=== PATIENT | female | born 1955 | race Two or more races ===

== ENCOUNTER 2019-01-16 06:19 | Outpatient (CLI) | payer OTHER | END 2019-01-16 06:25 | disposition home or self-care (01) | LOC: LAB 06:19 | DX: R80.8 Other proteinuria (principal); E03.8 Other specified hypothyroidism; E78.49 Other hyperlipidemia; Z11.4 Encounter for screening for human immunodeficiency virus [HIV]; M60.88 Other myositis, other site ==

== ENCOUNTER → 2019-01-17 | Outpatient (CLI) | payer OTHER | END | disposition home or self-care (01) | LOC: MRI 09:01 | DX: M50.90 Cervical disc disorder, unspecified, unspecified cervical region (principal) | CPT/HCPCS: 72141 ==

== ENCOUNTER 2019-01-18 08:01 | Outpatient (CLI) | payer OTHER | END 2019-01-18 15:00 | disposition home or self-care (01) | LOC: LAB 08:01 | DX: E03.8 Other specified hypothyroidism (principal); M60.88 Other myositis, other site; Z12.11 Encounter for screening for malignant neoplasm of colon; Z20.2 Contact with and (suspected) exposure to infections with a predominantly sexual mode of transmission; E55.9 Vitamin D deficiency, unspecified ==

== ENCOUNTER → 2019-07-01 | Emergency (ER) | payer OTHER ==
[~2019-07-01] VITALS: Ht 165.1 cm; Wt 74.8 kg
[~2019-07-01] MED LIST: ATIVAN0.5 M1 PO; ATIVAN1 M1; CHILDREN'S ASPI81 MG; COZAAR25 MG; HORIZANT300 MG; LEXAPRO20 MG; LEXAPRO20 MG PO; LIPITOR20 MG; NABUMETONE500 MG; OMEGA 3-6-9 CO400 MG; PENTOXIFYLLINE400 MG; WOMEN'S 50 PLU1 EACH
== END | disposition home or self-care (01) ==
LOC: ER 09:53
DX: R00.2 Palpitations (principal); F06.4 Anxiety disorder due to known physiological condition

== ENCOUNTER 2020-08-15 11:34 | Outpatient (CLI) | payer OTHER | END 2020-08-15 11:49 | disposition home or self-care (01) | LOC: NUCLEAR 11:34 | DX: M81.0 Age-related osteoporosis without current pathological fracture (principal); Z13.820 Encounter for screening for osteoporosis ==

== ENCOUNTER 2020-08-15 12:27 | Outpatient (CLI) | payer OTHER | END 2020-08-15 12:37 | disposition HB | LOC: MAMO-SONO 12:27 | DX: Z12.31 Encounter for screening mammogram for malignant neoplasm of breast (principal); Z87.898 Personal history of other specified conditions; N64.59 Other signs and symptoms in breast ==

== ENCOUNTER 2020-10-28 08:25 | Outpatient (CLI) | payer OTHER | END 2020-10-28 08:36 | disposition home or self-care (01) | LOC: RAD 08:25 | PROVIDERS: ATTEND Physical Medicine & Rehabilitation | DX: M54.5 Low back pain (principal) ==

== ENCOUNTER 2020-11-04 08:53 | Outpatient (CLI) | payer OTHER | END 2020-11-04 09:01 | disposition home or self-care (01) | LOC: MRI 08:53 | PROVIDERS: ATTEND Physical Medicine & Rehabilitation | DX: M54.2 Cervicalgia (principal); M48.02 Spinal stenosis, cervical region | CPT/HCPCS: 72141 ==

== ENCOUNTER 2021-02-02 13:43 | Outpatient (CLI) | payer OTHER | END 2021-02-02 13:53 | disposition home or self-care (01) | LOC: RAD 13:43 | PROVIDERS: ATTEND Physical Medicine & Rehabilitation | DX: M85.88 Other specified disorders of bone density and structure, other site (principal); M43.24 Fusion of spine, thoracic region; M54.5 Low back pain; M54.6 Pain in thoracic spine ==

== ENCOUNTER → 2021-04-29 | Emergency (ER) | payer OTHER ==
[~2021-04-29] VITALS: Ht 162.6 cm; Wt 63.5 kg
[~2021-04-29] MED LIST changes: +MUPIROCIN1 G1 TOP; +OSTERA TABLET1 EACH PO
== END | disposition home or self-care (01) ==
LOC: ER 09:46
DX: B34.9 Viral infection, unspecified (principal)

== ENCOUNTER 2021-11-16 09:09 | Emergency (ER) | payer OTHER ==
[~2021-11-16] VITALS: Ht 157.5 cm; Wt 59.0 kg
[2021-11-16] MEDS ORDERED: NAPROXEN500 MG (09:31)
== END 2021-11-16 13:57 | disposition home or self-care (01) ==
LOC: ER 09:09
DX: R51.9 Headache, unspecified (principal); R20.2 Paresthesia of skin; I10 Essential (primary) hypertension

== ENCOUNTER 2022-03-17 08:15 | Emergency (ER) | payer OTHER ==
[~2022-03-17] VITALS: Ht 162.6 cm; Wt 59.0 kg
[~2022-03-17 08:15] MED LIST changes: +NAPROXEN500 MG
[2022-03-17] MEDS ORDERED: CRESTOR10 MG PO (08:39)
[2022-03-17] MEDS ORDERED: LEXAPRO5 MG PO (08:39)
[2022-03-17] MEDS ORDERED: GABAPENTIN300 M2 PO (08:40)
[2022-03-17] MEDS ORDERED: ZETIA10 MG (08:40)
[2022-03-17] MEDS ORDERED: ATIVAN0.5 M1 PO (09:10)
== END 2022-03-17 09:23 | disposition home or self-care (01) ==
LOC: ER 08:15
DX: F41.0 Panic disorder [episodic paroxysmal anxiety] (principal); F32.9 Major depressive disorder, single episode, unspecified; E11.9 Type 2 diabetes mellitus without complications; E78.00 Pure hypercholesterolemia, unspecified; I73.9 Peripheral vascular disease, unspecified

== ENCOUNTER 2024-03-21 16:33 | Emergency (ER) | payer OTHER ==
[~2024-03-21] VITALS: Ht 157.5 cm; Wt 63.5 kg
[~2024-03-21 16:33] MED LIST changes: +CRESTOR10 MG PO; +GABAPENTIN300 M2 PO; +LEXAPRO5 MG PO; +ZETIA10 MG
[2024-03-21] MEDS ORDERED: PLAVIX75 MG (16:51)
== END 2024-03-21 17:28 | disposition home or self-care (01) ==
LOC: ER 16:35
DX: R53.81 Other malaise (principal); F43.10 Post-traumatic stress disorder, unspecified

== ENCOUNTER → 2024-04-12 | Emergency (ER) | payer OTHER ==
[~2024-04-12] VITALS: Ht 160 cm; Wt 63.5 kg
[~2024-04-12] MED LIST changes: +PLAVIX75 MG
[2024-04-12 04:16] VITALS: BP 189/76; O2SAT 100
== END | disposition left against medical advice (07) ==
LOC: ER 04:13
DX: Z53.21 Procedure and treatment not carried out due to patient leaving prior to being seen by health care provider (principal)

== ENCOUNTER 2024-06-21 07:40 | Emergency (ER) | payer OTHER ==
[~2024-06-21] VITALS: Ht 162.6 cm; Wt 63.5 kg
[2024-06-21] MEDS ORDERED: BUSPIRONE HCL7.5 MG (07:50)
[2024-06-21] MEDS ORDERED: LEVO-T50 MCG (07:50)
[2024-06-21] MEDS ORDERED: CLINDAMYCIN PHOSPHATE 150 MG/ML (300mg) IV ONE (08:30)
[2024-06-21] MEDS ORDERED: CLINDAMYCIN PHOSPHATE 150 MG/ML (300mg) ONE (08:44)
[2024-06-21 09:01] LABS: HEMATOCRIT 40.8 % (36.0-45.00); HEMOGLOBIN 13.7 g/dL (12.0-15.00); MEAN CELL VOLUME 95.1 fL (80.00-100.00); MEAN CORPUSCULAR HEMOGLOBIN 31.9 pg (27.00-32.0); MEAN CORPUSCULAR HGB CONC 33.6 g/dl (32.0-36.0); PLATELET COUNT 179 K/uL (150-450); RED BLOOD COUNT 4.29 M/uL (4.00-6.00); RED CELL DISTRIBUTION WIDTH 14.2 % (11.5-14.5)
[2024-06-21 09:13] LABS: CALCIUM 9.4 mg/dL (8.5-10.1); CREATININE SERUM 0.82 mg/dL (0.55-1.02); GFR 69.12; POTASSIUM 4.59 mEq/L (3.5-5.1)
[2024-06-21 09:23] LABS: PH,URINE 5.5 (5.0-8.0); URINE APPEARANCE Clear; URINE BILIRRUBIN Negative (NEGATIVE); URINE BLOOD Negative; URINE COLOR Yellow; URINE GLUCOSE Negative (NEGATIVE); URINE KETONE Negative (NEGATIVE); URINE LEUKOCYTE Negative; URINE NITRATE Negative; URINE PROTEIN 30 (NEGATIVE); URINE UROBILINOGEN 0.2 E.U./dl
[2024-06-21 09:27] LABS: URINE BACTERIA 105.2 uL (0.0-1933); URINE EPITHELIAL CELLS 40.1 uL (0.0-38.8); URINE RBC 2.2 uL (0.0-20.8)
[2024-06-21 09:45] LABS: URINE CAST 0.29 uL (0.0-1.40)
[2024-06-21] MEDS ORDERED: levoFLOXacin 500 MG TABLET PO ONE (10:00)
== END 2024-06-21 10:39 | disposition home or self-care (01) ==
LOC: ER 07:42
PROVIDERS: Emergency Medicine
DX: L02.31 Cutaneous abscess of buttock (principal); E03.9 Hypothyroidism, unspecified

== ENCOUNTER → 2025-01-08 | Emergency (ER) | payer OTHER ==
[~2025-01-08] VITALS: Ht 162.6 cm; Wt 63.5 kg
[~2025-01-08] MED LIST changes: +BUSPIRONE HCL7.5 MG; +BUTALB/ACETAMINOPHEN/CAFFEINE 1 TAB TABLET PO ONE; +LEVO-T50 MCG; +LEXAPRO5 MG; +NEURONTIN300 MG
[2025-01-08 06:11] VITALS: O2SAT 98
[2025-01-08 09:35] LABS: BASO % 0.4 % (0.1-1.2); EOS # 0.13 (0.04-0.54); EOS % 1.8 % (0.7-7.0); LYMPH # 2.20 (1.18-3.74); LYMPH % 30.3 % (19.3-53.1); MEAN PLATELET VOLUME 10.30 fl (9.4-12.4); MONO # 0.50 (0.24-0.82); MONO % 6.9 % (4.7-12.5); NEUT # 4.40 (1.56-6.13); NEUT % 60.5 % (34.0-71.1); RED CELL DISTRIBUTION WIDTH 13.4 % (11.6-14.4)
[2025-01-08 09:47] LABS: COVID-19 AG NEGATIVE (NEGATIVE)
[2025-01-08 11:58] VITALS: BP 120/75
== END | disposition home or self-care (01) ==
LOC: ER 05:48
PROVIDERS: General Practice
DX: R51.9 Headache, unspecified (principal); Z20.822 Contact with and (suspected) exposure to COVID-19; I10 Essential (primary) hypertension